=== PATIENT | male | born 1980 | race Caucasian/White ===

== ENCOUNTER 2021-10-09 13:14 | Emergency (ER) | payer SELFPAY ==
[~2021-10-09] VITALS: Ht 175.3 cm; Wt 123.0 kg
[2021-10-09 13:20] VITALS: BP 190/99
[2021-10-09] MEDS ORDERED: ORPHENADRINE 60 MG/2 ML (NORFLEX) AMP (ED ONLY) IM STA (13:24)
[2021-10-09] MEDS ORDERED: KETOROLAC 60 MG/2 ML VIAL IM STA (13:24)
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
[2021-10-09 13:55] LABS: BILIRUBIN,URINE NEGATIVE (NEGATIVE); CLARITY,URINE CLEAR; COLOR,URINE YELLOW; GLUCOSE, URINE (UA) NEGATIVE (NEGATIVE); KETONES,URINE TRACE (NEGATIVE); LEUKOCYTE ESTERASE ,URINE NEGATIVE (NEGATIVE); NITRITE,URINE NEGATIVE (NEGATIVE); PH,URINE 6.5 (5-9); PROTEIN,URINE NEGATIVE (NEGATIVE)
--- NOTE | 2021-10-09 13:59 | Diagnostic Imaging Report ---
EXAMINATION: CT chest without contrast. TECHNIQUE: Multiple contiguous axial images were obtained through the chest without the use of intravenous contrast. All CT scans use one or more of the following dose optimizing techniques: Automated exposure control, MA and/or KvP adjustment based on patient size and exam type or iterative reconstruction. HISTORY: Back and rib pain. Right-sided pain. No known injury. COMPARISON: None available. FINDINGS: The heart size is within normal limits. No pericardial effusion is present. There is no mediastinal, hilar, or axillary lymphadenopathy. The lungs demonstrate no pulmonary nodules or masses. There are no focal areas of consolidation. No central endobronchial obstructing lesions are identified. There is no pleural effusion or pneumothorax. The osseous structures demonstrate no acute abnormalities. Limited views of the upper abdominal structures demonstrate no acute abnormalities. Both adrenal glands are unremarkable. IMPRESSION: 1. No acute abnormalities are seen in the chest. 2. No evidence of right-sided rib fracture. No pleural effusion or pneumothorax. Dictated by: Dictated on workstation # [id number]
[2021-10-09 14:31] LABS: BACTERIA,URINE NEGATIVE /HPF
[2021-10-09 14:34] LABS: AMPHETAMINE SCREEN, URINE NEGATIVE (NEGATIVE); BARBITURATE SCREEN URINE NEGATIVE (NEGATIVE); BENZODIAZEPINES SCREEN URINE NEGATIVE (NEGATIVE); CANNABINOID SCREEN, URINE POSITIVE (NEGATIVE); COCAINE SCREEN URINE NEGATIVE (NEGATIVE); METHADONE STAT NEGATIVE (NEGATIVE); OPIATE SCREEN URINE NEGATIVE (NEGATIVE); OXYCODONE STAT NEGATIVE (NEGATIVE); PROPOXYPHENE STAT NEGATIVE (NEGATIVE); TRICYCLIC ANTIDEPRESSANTS SCRE NEGATIVE (NEGATIVE)
[2021-10-09] MEDS ORDERED: METH-732 PO (14:52)
[2021-10-09] MEDS ORDERED: IBUP-1780 PO (14:52)
[2021-10-09] MEDS ORDERED: ACHD5005 PO (14:52)
== END 2021-10-09 14:56 | disposition home or self-care (01) ==
LOC: ER FS 13:15
DX: S29.012A Strain of muscle and tendon of back wall of thorax, initial encounter (principal); E71.32 Disorders of ketone metabolism; X58.XXXA Exposure to other specified factors, initial encounter
CPT/HCPCS: 71250; 80306; 81000